=== PATIENT | male | born 1970 | race Caucasian/White ===

== ENCOUNTER 2023-06-10 08:55 | Outpatient (CLI) | payer OTHER, SELFPAY ==
--- NOTE | ~2023-06-10 | CT_ITS ---
EXAMINATION: CT abdomen pelvis w con DATE: 06/10/2023 09:22 INDICATION: Splenic infarction TECHNIQUE: Computed tomography (CT) of the abdomen and pelvis was performed with 100 CC Omnipaque 350 intravenous contrast. Automated exposure control and iterative reconstruction technique were employe d. Exam dose: 1670.74 mGy-cm total exam DLP. COMPARISON: None. FINDINGS: The lung bases are clear. Heart size is within normal limits. No pericardial or pleural eff usion. The liver, gallbladder, bile ducts, pancreas, pancreatic duct are unremarkable. Small focal area of diminished attenuation of the posterior superior aspect of the spleen may be cons istent with a small infarct. Normal morphology of the adrenal glands. There are couple of approximately 1 cm upper pole right renal cysts. There is focal upper pole left renal scarring. There are approximately 5 upper pole left renal nonobs tructing calculi, the largest measuring approximately 5.7 mm. No right renal calculus. No ureteral ca lculi or hydroureteronephrosis. The urinary bladder and prostate gland appear unremarkable. There is mild vas deferens calcifications which suggests possible diabetes. There is atherosclerotic calcification but normal caliber of the abdominal aorta. No intraperitoneal or retroperitoneal or pelvic mass lesion or adenopathy or ascites is noted. Nonspecific metallic foreign bodies in the right mid and lower abdomen. The appendix is not visualized. No bowel obstruction, bowel wall thickening, pneumatosis or intraperi toneal free air is detected. Moderate degenerative change of the thoracic and lumbar spine. IMPRESSION: Small posterosuperior splenic infarct 2. Upper pole approximately 1 cm right renal cysts Focal upper pole left renal scarring Nonobstructive left nephrolithiasis Mild vas deferens calcification, which is usually associated with diabetes Reviewed, dictated and finalized at [facility]. Reviewed, dictated and finalized at [facility].
[2023-06-10 09:16] LABS: Estimated Glomerular Filt Rate > 60
== END 2023-06-10 08:56 | disposition home or self-care (01) ==
PROVIDERS: PCP Internal Medicine Gastroenterology; Visit Provider Internal Medicine Hematology & Oncology
DX: D73.5 Infarction of spleen (principal); Q61.02 Congenital multiple renal cysts; N20.0 Calculus of kidney; N50.89 Other specified disorders of the male genital organs
CPT/HCPCS: 74177; Q9967